=== PATIENT | female | born 1975 | race Caucasian/White ===

== ENCOUNTER 2020-12-20 21:15 | Emergency (ER) | payer OTHER ==
[~2020-12-20 21:15] MED LIST: CLINDAMYCIN HC300 MG PO; CYMBALTA60 MG PO; DESYREL 50 MG T50 MG PO; ELIQUIS2.5 MG PO; FLEXERIL 10 MG10 MG PO; HYDROCODON-ACE1 EAC4 PO; IBUPROFEN600 MG PO; LISINOPRIL20 MG PO; MAGOX 400400 MG PO; MIRALAX17 GM PO; PERCOCET 5-3251 EACH PO; PERCOCET 5/325 T1 EA PO; PRINIVIL20 MG PO; ROBAXIN-750750 MG PO; XARELTO10 MG PO
== END 2020-12-20 22:10 | disposition left against medical advice (07) ==
LOC: ER1 21:15
DX: Z53.21 Procedure and treatment not carried out due to patient leaving prior to being seen by health care provider (principal)

== ENCOUNTER → 2022-04-20 | Outpatient (CLI) | payer OTHER | LOC: MAMO 04-17 08:00 | DX: E03.9 Hypothyroidism, unspecified (principal); Z12.31 Encounter for screening mammogram for malignant neoplasm of breast | CPT/HCPCS: 76536; 77063; 77067 ==